=== PATIENT | male | born 1945 | race Caucasian/White ===

== ENCOUNTER 2017-06-07 11:26 | Emergency (ER) | payer MEDICARE ==
[2017-06-07] MEDS ORDERED: Dexamethasone 10 MG/ML VIAL ONE (12:06)
[2017-06-07] MEDS ORDERED: Dexamethasone 4 mg/ml Vial ONE (12:06)
== END 2017-06-07 12:14 | disposition home or self-care (01) ==
LOC: SCSER 11:26
DX: J06.9 Acute upper respiratory infection, unspecified (principal)
CPT/HCPCS: 99283; J1100

== ENCOUNTER 2017-10-22 06:44 | Day surgery (SDC) | payer MEDICARE ==
[2017-10-21 14:53] VITALS: BMI 26.2
--- NOTE | 2017-10-22 09:08 | HP ---
SHORT STAY HISTORY AND PHYSICAL DATE OF ADMISSION: 10/22/2017 HISTORY OF PRESENT ILLNESS: This is a 72-year-old male with history of colon cancer, statu s post surgery more than 15 years ago. The patient had a colonoscopy 2 years after surgery. The pat sinai had no colonoscopy after that. The patient has had constipation over the last one month. The c onstipation was very severe and has treated to normal The patient has no history of hematochez ia, no melena. The patient had colonoscopy, because of the history of colon cancer surgery. ALLERGIES: None. SOCIAL HISTORY: Patient does not smoke, but recently drink alcohol in the past. He is to quit drink ing alcohol one month ago. MEDICAL ILLNESSES: 1. Colon cancer, status post surgery. 2. Colon polyp. 3. Chronic acid reflux. 4. Sleep disorder. 5. Right knee replacement in 2014. PHYSICAL EXAMINATION: VITAL SIGNS: Pulse is 70, blood pressure 130/70. HEENT: Conjunctivae clear. CARDIOVASCULAR SYSTEM AND LUNGS: Within normal limits. ABDOMEN: Soft to palpate. No organomegaly. No tenderness. No masses. ADMITTING DIAGNOSIS: Colon cancer, status post surgery. PLAN: Followup colonoscopy.
[2017-10-22] MEDS ORDERED: PROPOFOL 200 MG/20 ML VIAL ONE (14:36)
[2017-10-22] MEDS ORDERED: PHENYLEPHRINE-NS 100 MCG/ML 10 ML SYRINGE ONE (14:36)
[2017-10-22] MEDS ORDERED: Lidocaine 1% PF 5 ML VIAL ONE (14:36)
--- NOTE | 2017-10-23 10:18 | OP ---
DATE OF PROCEDURE: 10/22/2017 OPERATIVE PROCEDURE: Colonoscopy. PREOPERATIVE DIAGNOSES: A 72-year-old male with a history of colon cancer, status post sig moid resection more than 15 years ago. The patient has had 2 episodes of severe constipation and has taken a laxative. The patient is undergoing colonoscopy. POSTOPERATIVE DIAGNOSES: 1. Mild sigmoid diverticular disease. 2. Otherwise, normal colonoscopy. PROCEDURE NOTE: The patient was placed on his left lateral position and was given sedation by Anesth esia Department. A rectal exam was done before the scope was advanced into the rectum. No lesion fe lt on rectal exam. A [employer] video colonoscope was introduced into the rectum and advanced all the wa y into the cecum. The prep was very good. The mucosa appears normal throughout the colon with l vascular pattern. The appendical orifice, ileocecal valve, and cecum, no pathology seen. The scop e advanced to terminal ileum for about 15 cm. The ileal mucosa appeared normal. Withdrawal of scope from the ileum into ascending colon, hepatic flexure and transverse colon, no pathology seen. The s plenic flexure, descending colon and sigmoid colon, no pathology seen except for mild sigmoid diverti culitis. Retroflexion of the scope in the rectum showed hemorrhoids. DISCHARGE PLANNING: A 72-year-old male, who has had a sigmoid colon resection for colon ca rcinoma more than 18 years ago. The patient had colonoscopy 2 years after initial surgery. The shorty ent came in for colonoscopy and was found to have no pathology seen. DISCHARGE RECOMMENDATIONS: 1. High-fiber diet. 2. The patient advised to call me if he develops abdominal pain or hematochezia. . Colonoscopy in 3 years.
== END 2017-10-22 10:30 | disposition home or self-care (01) ==
LOC: SDC 06:44
PROVIDERS: ATTEND Internal Medicine Gastroenterology
PROC: 0DJD8ZZ Inspection of Lower Intestinal Tract, Via Natural or Artificial Opening Endoscopic (ICD-10-PCS; principal; 2017-10-22)
DX: Z12.11 Encounter for screening for malignant neoplasm of colon (principal); K57.30 Diverticulosis of large intestine without perforation or abscess without bleeding; K64.4 Residual hemorrhoidal skin tags; K21.9 Gastro-esophageal reflux disease without esophagitis; Z85.038 Personal history of other malignant neoplasm of large intestine; Z79.899 Other long term (current) drug therapy; Z90.49 Acquired absence of other specified parts of digestive tract; Z98.890 Other specified postprocedural states
CPT/HCPCS: J2001; J2704

== ENCOUNTER 2019-09-14 13:44 | Outpatient (CLI) | payer MEDICARE ==
--- NOTE | 2019-09-14 14:01 | RAD ---
KUB INDICATION: Renal calculus COMPARISON: None FINDINGS: Bowel gas: Nonspecific but without overt appearance of obstruction. Lung bases: Clear. Additional findings: r there is a 9.5 mm stone involving the inferior pole left kidney. There is a 4. 2 mm stone involving inferior pole left kidney. There is a 1.5 mm stone involving inferior pole left kidney. No suspicious calcification is seen overlying the right renal collecting system. There a re moderate vascular calcifications seen involving the visualized vasculature. Osseous structures: No acute osseous abnormality is demonstrated. IMPRESSION: 1. Left nephrolithiasis
== END 2019-09-14 13:45 | disposition home or self-care (01) ==
LOC: RAD 13:44
PROVIDERS: ATTEND Urology
DX: N20.0 Calculus of kidney (principal)
CPT/HCPCS: 74018

== ENCOUNTER 2020-04-05 14:42 | Outpatient (CLI) | payer MEDICARE ==
--- NOTE | 2020-04-05 15:29 | RAD ---
EXAM: XR Abdomen 1 View/KUB PROVIDED CLINICAL HISTORY: Kidney stone. Follow-up evaluation. COMPARISON: 09/14/2019 FINDINGS: Again noted are calcifications overlying the superior and inferior pole right kidney as well as infer ior pole left renal shadow compatible with bilateral nephrolithiasis similar to prior exam. Largest calculus is seen in the superior pole right kidney measuring 11 mm. Calcification is seen just medial to the right renal shadow. This may represent a vascular calcification or calcination the region of the right renal pelvis. This was also seen on prior exam. Calcifications are seen in the left uppe r quadrant likely due to vascular calcifications and appear to be just superior to the superior pole the left renal shadow. Vascular calcifications are seen in a tortuous abdominal aorta and in the iliac arteries. Bowel gas p attern is nonspecific. IMPRESSION: Bilateral nephrolithiasis. In addition, there is a calcification just medial to the right renal shado w also seen on prior study which may represent either a vascular calcification or calculus in the region of the right renal pelvis.
== END 2020-04-05 14:43 | disposition home or self-care (01) ==
LOC: RAD 14:42
PROVIDERS: ATTEND Urology
DX: N20.0 Calculus of kidney (principal); N28.89 Other specified disorders of kidney and ureter
CPT/HCPCS: 74018

== ENCOUNTER 2020-04-28 14:30 | Outpatient (CLI) | payer MEDICARE ==
--- NOTE | 2020-04-28 16:33 | CT ---
CT ABDOMEN AND PELVIS WITHOUT IV CONTRAST: 04/28/20 INDICATIONS: Kidney stones. COMPARISON: Comparison made to a CT abdomen and pelvis from 08/25/17. FINDINGS: Lung bases appear clear. The liver, spleen and pancreas unremarkable and unchanged. Adrenal glands normal. Review of kidneys show a nonobstructing calculus in the lower pole right kidney measuring approximate ly 1 cm. There are at least two other smaller calcifications in the lower pole collecting structures of the right kidney. There are also calcifications in the upper collecting structures of the right kidney with at least on e calcification in the upper pole collecting structures measuring approximately 9 to 10 mm. There are at least two other smaller calcifications within the upper pole collecting structures of the left ki dney. There are also arterial calcifications seen in the right renal pelvis. Calcifications seen in the lower pole collecting structures of the left kidney measuring in the 2 to 3 mm range. There are also arterial calcifications seen within the collecting structures of both kidneys which day s the appearance of nonobstructing calculi. There is no evidence of hydronephrosis. The ureters are normal caliber with no evidence of ureteral c alculus. Prostate is mildly enlarged with small prostatic calcifications. The bladder is contracted and not we ll evaluated. There is perinephric stranding on the left which is similar in appearance to the 2018 exam. Mild augusto ical scarring on the left is also similar in appearance. There is a cyst extending from the posterior inferior left kidney which is exophytic and stable from the prior exam measuring approximately 1.8 cm. Small and large bowel loops unremarkable. Aorta is calcified and mildly ectatic. Both iliac arteries are ectatic. These findings are stable. IMPRESSION: 1. There are nonobstructing calculi in the upper collecting structures of both kidneys. These ar e larger and more numerous on the right with calcifications in both upper pole and lower pole collect ing structures of the right kidney as described above. 2. There are also arterial calcifications seen in both renal pelvises. POS: AH
== END 2020-04-28 14:31 | disposition home or self-care (01) ==
LOC: SCSCT 14:30
PROVIDERS: ATTEND Urology
DX: N20.0 Calculus of kidney (principal); N28.89 Other specified disorders of kidney and ureter
CPT/HCPCS: 74176

== ENCOUNTER 2020-07-11 13:38 | Outpatient (CLI) | payer MEDICARE ==
--- NOTE | 2020-07-11 14:09 | RAD ---
ABDOMEN 1 VIEW: HISTORY: Renal clculi COMPARISON: 04/05/2020. FINDINGS: Numerous but irregularly shaped bilateral nonobstructing renal calculi. Evidence for vascular calcif ications. No convincing evidence for obstructing ureteral calculus. IMPRESSION: Multiple bilateral renal calculi. Little change from prior exam. POS: AH
== END 2020-07-11 13:39 | disposition home or self-care (01) ==
LOC: RAD 13:38
PROVIDERS: ATTEND Urology
DX: N20.0 Calculus of kidney (principal)
CPT/HCPCS: 74018

== ENCOUNTER 2022-07-04 10:26 | Outpatient (CLI) | payer MEDICARE | END 2022-07-04 10:27 | disposition home or self-care (01) | LOC: BICMRI 10:26 | PROVIDERS: ATTEND Orthopaedic Surgery | DX: M75.112 Incomplete rotator cuff tear or rupture of left shoulder, not specified as traumatic (principal); M75.82 Other shoulder lesions, left shoulder ==

== ENCOUNTER 2022-10-08 10:22 | Outpatient (CLI) | payer MEDICARE ==
[2022-10-08 11:53] LABS: #Eosinphils 0.1 10x3/uL (0.0-0.5); #Neutrophils 4.6 10x3/uL (1.5-8.4); %Basophils 0.5 % (0.0-2.0); %Eosinophils 1.2 % (0.0-6.0); %Lymphocytes 31.7 % (18.0-47.0); %Neutrophils 53.7 % (40.0-75.0); Hemoglobin 15.6 g/dL (13.5-17.5); Mean Corpuscular HGB CONC 32.4 g/dL (32.0-36.0); Mean Corpuscular Hemoglobin 30.5 pg (27.0-33.0); Mean Corpuscular Volume 94.1 fl (81.2-95.1); Mean Platelet Volume 11.4 fl (7.4-10.4); Platelet Count 195 10x3/uL (150-450); RBC Distribution Width 13.9 % (11.5-14.5); Red Blood Cell (RBC) Count 5.12 10x6/uL (4.32-5.72); White Blood Cell (WBC) Count 8.5 10x3/uL (3.5-10.5)
[2022-10-08 12:14] LABS: Anion Gap 14 mmol/L (10-20); BUN (Urea Nitrogen) 18 mg/dL (8.4-25.7); Calc. Creatinine Clearance 0 mL/min (70-130); Calcium 9.1 mg/dL (7.8-10.44); Carbon Dioxide 21 mmol/L (23-31); Chloride 108 mmol/L (98-107); Estimated GFR 57; Glucose 144 mg/dL (83-110); Potassium 3.9 mmol/L (3.5-5.1); Sodium 139 mmol/L (136-145)
[2022-10-08 12:16] LABS: INR-International Normal Ratio 0.9; Prothrombin Time 10.3 sec (9.5-12.1)
== END 2022-10-08 10:23 | disposition home or self-care (01) ==
LOC: LABBT 10:22
PROVIDERS: ATTEND Orthopaedic Surgery
DX: Z01.812 Encounter for preprocedural laboratory examination (principal); M75.112 Incomplete rotator cuff tear or rupture of left shoulder, not specified as traumatic
CPT/HCPCS: 80048; 85025; 85610

== ENCOUNTER 2022-10-11 06:04 | Observation (INO) | payer MEDICARE ==
[2022-10-11] MEDS ORDERED: Lidocaine 4% Topical Sol 50 ML BOT ONE (06:17)
[2022-10-11] MEDS ORDERED: Fentanyl 250 MCG/5 ML VIAL ONE (06:17)
[2022-10-11] MEDS ORDERED: SUGAMMADEX SODIUM 200 MG/2 ML VIAL ONE ×2 (06:17→10:14)
[2022-10-11] MEDS ORDERED: Tranexamic Acid 1,000 MG/10 ML VIAL ONE (07:43)
[2022-10-11] MEDS ORDERED: Vancomycin (BATCH) 1.5 GRAM/300 ML BAG ONE (07:43)
[2022-10-11] MEDS ORDERED: Sodium Chloride 0.9% 100 ML ONE ×2 (07:43→07:51)
[2022-10-11] MEDS ORDERED: CEFAZOLIN 2 GM VIAL ONE (07:51)
[2022-10-11] MEDS ORDERED: Rocuronium Bromide 10 MG/ML (10ML VIAL) ONE (08:25)
[2022-10-11] MEDS ORDERED: GLYCOPYRROLATE/PF 0.2 MG/ML VIAL ONE (08:25)
[2022-10-11] MEDS ORDERED: PROPOFOL 200 MG/20 ML VIAL ONE (08:25)
[2022-10-11] MEDS ORDERED: NEOSTIGMINE 3 MG/3 ML SYR 3 MG/3 ML SYRINGE ONE (08:25)
[2022-10-11] MEDS ORDERED: Dexamethasone 20 MG/5 ML VIAL ONE (08:25)
[2022-10-11] MEDS ORDERED: Ondansetron PF 4 MG/2 ML Vial ONE (08:25)
[2022-10-11] MEDS ORDERED: Lidocaine 1% PF 5 ML VIAL ONE (08:25)
[2022-10-11] MEDS ORDERED: FENTANYL 50 MCG/ML 1 ML VIAL SLOW IVP PRN (08:51)
[2022-10-11] MEDS ORDERED: Ropivacaine 0.5% HCl/PF (150 MG/30 ML VIAL) ONE (08:51)
[2022-10-11] MEDS ORDERED: Ropivacaine 0.2% HCl/PF 20 ML ONE (08:51)
[2022-10-11] MEDS ORDERED: Promethazine HCl 25 MG/ML VIAL IM PRN (09:00)
[2022-10-11] MEDS ORDERED: Ondansetron PF 4 MG/2 ML Vial IVP PRN ×2 (09:00→10:20)
[2022-10-11] MEDS ORDERED: Ropivacaine 0.2% 550 ML 550 ML NERVE BLCK SCH (09:00)
[2022-10-11] MEDS ORDERED: traMADol HCl 50 MG TAB PO PRN (09:00)
[2022-10-11] MEDS ORDERED: HYDROcodone/Acetaminophen 10/325 mg Tablet PO PRN (09:00)
[2022-10-11] MEDS ORDERED: Zolpidem Tartrate 5 MG TAB PO PRN ×2 (09:00→10:20)
[2022-10-11] MEDS ORDERED: Methocarbamol 1 GM/10 ML VIAL SLOW IVP PRN (10:20)
[2022-10-11] MEDS ORDERED: Methocarbamol 500 MG TAB PO PRN (10:20)
[2022-10-11] MEDS ORDERED: diphenhydrAMINE 50 MG CAP PO PRN (10:20)
[2022-10-11] MEDS ORDERED: Ondansetron ODT 4 MG TAB PO PRN (10:20)
[2022-10-11] MEDS ORDERED: Acetaminophen 325 MG TAB PO PRN (10:20)
[2022-10-11] MEDS ORDERED: Milk Of Magnesia 30 ML UDCUP PO PRN (10:20)
[2022-10-11] MEDS ORDERED: Bisacodyl 10 MG SUPP PR PRN (10:20)
[2022-10-11] MEDS: Dextrose 5 %-0.45 % NaCl 1,000 ML IV SCH (14:06)
[2022-10-11] MEDS: CEFAZOLIN 2 GM in Sodium Chloride 0.9% 100 ML IVPB SCH ×2 (16:08→23:19)
[2022-10-11] MEDS: HYDROcodone/Acetaminophen 10/325 mg Tablet PO PRN ×2 (18:35→23:19)
[2022-10-11] MEDS: Famotidine 20 MG TAB PO SCH (20:28)
[2022-10-12] MEDS: Dextrose 5 %-0.45 % NaCl 1,000 ML IV SCH ×2 (05:02→17:34)
[2022-10-12] MEDS: HYDROcodone/Acetaminophen 10/325 mg Tablet PO PRN ×5 (05:31→23:17)
[2022-10-12] MEDS: traMADol HCl 50 MG TAB PO PRN ×2 (08:06→20:43)
[2022-10-12] MEDS: Famotidine 20 MG TAB PO SCH ×2 (08:06→20:39)
[2022-10-12] MEDS ORDERED: Polyethylene Glycol 3350 17 GM Packet PO PRN (19:48)
[2022-10-13] MEDS: HYDROcodone/Acetaminophen 10/325 mg Tablet PO PRN ×2 (05:30→14:40)
[2022-10-13] MEDS: Famotidine 20 MG TAB PO SCH (09:28)
[2022-10-13] MEDS: Dextrose 5 %-0.45 % NaCl 1,000 ML IV SCH (09:34)
[2022-10-13 11:49] VITALS: BP 124/68; TEMP 97.4
== END 2022-10-13 15:10 | disposition home or self-care (01) ==
LOC: SDC 06:04 → SURG B 10:20
PROVIDERS: ADMIT Orthopaedic Surgery; ATTEND Orthopaedic Surgery
PROC: 0RRK00Z Replacement of Left Shoulder Joint with Reverse Ball and Socket Synthetic Substitute, Open Approach (ICD-10-PCS; principal; 2022-10-11)
PROC: 0LS40ZZ Reposition Left Upper Arm Tendon, Open Approach (ICD-10-PCS; 2022-10-11)
DX: M75.122 Complete rotator cuff tear or rupture of left shoulder, not specified as traumatic (principal); M67.814 Other specified disorders of tendon, left shoulder; I10 Essential (primary) hypertension; K21.9 Gastro-esophageal reflux disease without esophagitis; Z85.038 Personal history of other malignant neoplasm of large intestine; Z79.01 Long term (current) use of anticoagulants; Z79.899 Other long term (current) drug therapy; Z96.651 Presence of right artificial knee joint
CPT/HCPCS: 23472; 23430; 96365; 96375; 96376; 97116; 97535; A4306; C1713 ×6; C1776 ×4; G0378 ×3; J3010; J3370; J3490; J1100; J2405; J2704; J2795; J7042